=== PATIENT | male | born 1945 | race Caucasian/White ===

== ENCOUNTER → 2017-02-20 | Day surgery (SDC) | payer OTHER ==
[~2017-02-20] MED LIST: ADVIL200 M1 PO; ARTIFICIAL TEAR15 M3 OU; ARTIFICIAL TEAR15 M9 OU; CALCIUM 500 +1 EAC2 PO; MEGACE ORA40 MG/ML S; METAMUCIL1 PKT PO; MOTRIN600 MG PO; MYRBETRIQ50 MG PO; OMEGA 3 FISH1 CAP.EC PO; OMEPRAZOLE40 MG PO; PRILOSEC PO; PRILOSEC40 MG PO; TRAMADOL HCL-AP1 TAB PO; TRAMADOL HCL200 M1 PO; TRAMADOL-APAP1 EACH PO; ULTRACET TABLET1 TAB PO; VITAMIN C500 M1 PO
--- NOTE | ~2017-02-20 | OR ---
Unit #: [id number] #: [id number] Patient: RAGHAV LAUREN JR [id number] [address] [address] [id number] O MR#: [id number] NAME: RAGHAV LAUREN JR ROOM: Date of Procedure: 02/20/2017 Admission Date: 02/20/2017 Surgeon: Jamison Woody M.D. : 1945 Attending Physician: Jamison Woody M.D. Referring Physician: Jamison Woody M.D. Primary Care Physician: Enrique Arce D.O. OPERATIVE REPORT PRIMARY CARE PHYSICIAN Enrique Arce D.O. PREOPERATIVE DIAGNOSES Colorectal cancer surveillance. The patient has personal history of colon polyps removed in the past. PROCEDURES PERFORMED Colonoscopy and polypectomy. POSTOPERATIVE DIAGNOSES 1. The patient had two sessile polyps, one each in the rectum and distal transverse colon. Both were removed using snare polypectomy. They were 1 cm and 7 mm each respectively. 2. Mild sigmoid and descending colon diverticulosis. 3. Rest of the examination up to cecum was normal. The quality of prep was good. RECOMMENDATIONS Follow up the results of polyp histology and consider repeat colonoscopy in 5 years. SEDATION USED MAC. DESCRIPTION OF PROCEDURE Following detailed explanation of the potential risks and complications of a colonoscopy, namely perforation, bleeding, and complications related to sedation, the patient was brought to GI lab and laid in the left lateral decubitus position. A digital rectal examination was performed, which was normal. Lubricated tip of the Olympus video colonoscope was inserted through the anus and advanced under direct vision. The scope was advanced past rectosigmoid into descending colon. Scant small diverticula were noted in this area. The scope tip was then navigated all the way up to cecum with visualization of the ileocecal valve and the appendiceal orifice. Preparation was good with good visualization and photodocumentation was obtained. Successive segments of the colonic mucosa were examined upon withdrawal. A sessile polyp was noted in the proximal transverse colon. This was about 7 mm in size. It was removed using snare polypectomy. A second polyp was present in the rectum about a centimeter in size, also removed using snare polypectomy. Both the polyps were retrieved and sent for histology. Excellent hemostasis was achieved Unit #: [id number] #: [id number] Patient: XIN CABARAGHAV Chowdary and photodocumentation was obtained. No additional polyps were noted. Other than the scant diverticula, no additional abnormalities were found. The patient did not have any hemorrhoids at the anal verge. The scope was then withdrawn and the patient returned to the recovery area. He tolerated the procedure without any postprocedure complications. Dictated by... Roshni Hoyos/agneline TD: 02/20/2017 13:39 JOB #: [id number] CC: Enrique Arce D.O. OPERATIVE REPORT Page 1 of 1 X Jamison Woody MD X PROCEDURE OPERATIVE NOTE
== END | disposition home or self-care (01) ==
LOC: COPS 09:31
DX: Z12.11 Encounter for screening for malignant neoplasm of colon (principal); K57.30 Diverticulosis of large intestine without perforation or abscess without bleeding; G47.30 Sleep apnea, unspecified; Z86.010 Personal history of colon polyps; Z85.51 Personal history of malignant neoplasm of bladder; Z90.89 Acquired absence of other organs; Z88.2 Allergy status to sulfonamides; Z88.8 Allergy status to other drugs, medicaments and biological substances; Z79.899 Other long term (current) drug therapy; Z87.891 Personal history of nicotine dependence
CPT/HCPCS: 88305